=== PATIENT | female | born 1995 | race Caucasian/White ===

== ENCOUNTER 2021-09-27 01:15 | Inpatient (IN) ==
[2021-09-27] MEDS ORDERED: *HR* Nalbuphine 10 MG/ML AMPUL IV PRN (01:25)
[2021-09-27] MEDS ORDERED: Metoclopramide 10 MG/2 ML VIAL IVP PRN (01:25)
[2021-09-27] MEDS ORDERED: Famotidine 20 MG/2 ML VIAL IVP PRN (01:25)
[2021-09-27] MEDS ORDERED: Naloxone 0.4 MG/ML INJ IVP PRN (01:25)
[2021-09-27] MEDS ORDERED: Ondansetron 4 MG/2 ML VIAL IVP PRN (01:25)
[2021-09-27] MEDS ORDERED: Ringers Solution, Lactated 1,000 ML IVC SCH (01:30)
[2021-09-27] MEDS ORDERED: Ringers Solution, Lactated 1,000 ML ONE (01:32)
[2021-09-27] MEDS ORDERED: Epidural Premix (fent/bupiv) 110 ML EP ONE (01:39)
[2021-09-27 01:40] LABS: Basophils % 0.2 %; Eosinophils # 0.1 K/mcL (0.0-0.6); Eosinophils % 0.6 %; Hemoglobin 12.9 g/dL (11.5-15.4); Immature Granulocytes % 1.3 % (0-4); Lymphocytes # 1.7 K/mcL (0.6-4.6); Lymphocytes % 15.8 %; Mean Corpuscular HGB Conc 33.9 g/dL (31.6-35.5); Mean Corpuscular Hemoglobin 31.2 pg (28.0-33.3); Mean Corpuscular Volume 91.8 fL (83.0-100.0); Mean Platelet Volume 10.5 fL (9.4-12.4); Monocytes # 0.8 K/mcL (0.0-1.3); Monocytes % 7.8 %; Neutrophils # 7.9 K/mcL (1.6-8.9); Platelet Count 197 K/mcL (140-400); Red Blood Count 4.14 M/mcL (3.82-4.97); Red Cell Distribution Width 14.9 % (11.5-14.5); Segmented Neutrophils % 74.3 %; White Blood Count 10.6 K/mcL (4.3-11.1)
[2021-09-27] MEDS ORDERED: EPHEDrine 50 MG/ML VIAL IVP PRN (01:46)
[2021-09-27] MEDS ORDERED: Epidural Premix (fent/bupiv) 110 ML EP SCH (02:00)
[2021-09-27 02:08] LABS: Amphetamine Screen,Urine Negative ng/mL (Cutoff=1000); Barbiturate Screen,Urine Negative ng/mL (Cutoff=200); Benzodiazepines Screen,Urine Negative ng/mL (Cutoff=200); Cannabinoid Screen,Urine Negative ng/mL (Cutoff = 50); Cocaine Screen,Urine Negative ng/mL (Cutoff= 300); Opiate Screen,Urine Negative ng/mL (Cutoff=300); Phencyclidine Screen,Urine Negative ng/mL (Cutoff=25)
[2021-09-27] MEDS ORDERED: Oxytocin 20 units/ LR 1000 mL 20 UNIT/1,000 ML BAG IVC SCH ×2 (02:45→05:10)
[2021-09-27] MEDS ORDERED: Ondansetron ODT 4 MG TAB.RAPDIS SL PRN (05:10)
[2021-09-27] MEDS ORDERED: Benzocaine/Menthol 56 GM AEROSOL SPRAY TP PRN (05:10)
[2021-09-27] MEDS ORDERED: *HR* OxyCODONE Immed Rel 5 MG TABLET PO PRN (05:10)
[2021-09-27] MEDS ORDERED: Lanolin 7 G OINT...G. TP PRN (05:10)
[2021-09-27] MEDS: Prenatal Vit/FA 1 EACH TABLET PO SCH (08:05)
[2021-09-27] MEDS: Acetaminophen 325 MG TABLET PO SCH (08:05)
[2021-09-27 17:47] VITALS: O2SAT 99
[2021-09-28] MEDS: Acetaminophen 325 MG TABLET PO SCH ×2 (03:37→08:08)
[2021-09-28] MEDS: Ibuprofen 600 MG TABLET PO SCH ×2 (03:37→08:07)
[2021-09-28 07:50] VITALS: BP 113/76; PULSE 62; TEMP 97.7
[2021-09-28] MEDS: Prenatal Vit/FA 1 EACH TABLET PO SCH (08:08)
== END 2021-09-28 11:17 | disposition home or self-care (01) | DRG 807 ==
LOC: 1NENULAB → OBSVTOIN 01:15 → 1NENUOBS 08:18
PROVIDERS: ADMIT Advanced Practice Midwife; ATTEND Advanced Practice Midwife